=== PATIENT | male | born 1990 | race African-American/Black ===

== ENCOUNTER 2019-03-13 23:20 | Inpatient (IN) | payer MEDICAID, OTHER ==
[~2019-03-13] VITALS: Ht 170.2 cm; Wt 60.8 kg
[2019-03-14] MEDS ORDERED: SODIUM CHLORIDE 0.9% 1,000 ML IV ONE (00:05)
[2019-03-14] MEDS ORDERED: LORAZEPAM 2MG/ML CPJ IV STA (00:05)
[2019-03-14] MEDS ORDERED: ONDANSETRON HCL 4MG/2ML INJ IV STA (00:05)
[2019-03-14 00:36] LABS: BASOPHILS % 0.5 % (0.0-2.0); EOSINOPHILS % 0.4 % (0.0-5.0); HEMATOCRIT. 47.4 % (42.0-52.0); HEMOGLOBIN. 16.5 g/dL (14.0-18.0); LYMPHOCYTES % 28.2 % (20.0-50.0); MEAN PLATELET VOLUME 7.6 fl (7.4-10.4); MONOCYTES % 10.4 % (2.0-8.0); NEUTROPHILS % 60.5 % (40.0-76.0); PLATELET 197 x1000/uL (130-400); RED BLOOD CELL COUNT 4.99 mill/uL (4.7-6.1); RED CELL DISTRIBUTION WIDTH 13.7 % (11.6-14.6)
[2019-03-14 00:37] LABS: BG BASE EXCESS -0.1 mmol/L (-2.0-2.0); BG CARBOXYHEMOGLOBIN 6.9 % (0.5-1.5); BG DEOXYHEMOGLOBIN 1.3 % (0.0-5.0); BG FRACTION INSPIRED OXYGEN 21; BG HCO3 ACT 23.6 mmol/L (22.0-26.0); BG METHEMOGLOBIN 0.1 % (0.0-1.5); BG OXYGEN SATURATION 98.6 % (92.0-98.5); BG OXYHEMOGLOBIN 91.7 % (94.0-97.0); BG PH 7.435 (7.350-7.450); BG PO2 125.3 mmHg (75.0-100.0); BG SAMPLE SITE RIGHT RADIAL; BG TOTAL HEMOGLOBIN 15.4 g/dL (12.0-18.0); BG VENT MODE ROOM AIR
[2019-03-14 00:39] LABS: CHLORIDE 102 mEq/L (98-107)
[2019-03-14 00:43] LABS: ETHANOL BLOOD < 10 mg/dL
[2019-03-14 00:47] LABS: CREATINE KINASE 324 IU/L (39-308)
[2019-03-14 00:49] LABS: CLARITY URINE CLEAR (CLEAR); COLOR URINE YELLOW (YELLOW); KETONES URINE TRACE (NEGATIVE); LEUKOCYTE ESTERASE URINE NEGATIVE (NEGATIVE); NITRITE URINE NEGATIVE (NEGATIVE); OCCULT BLOOD URINE NEGATIVE (NEGATIVE); PROTEIN URINE NEGATIVE (NEGATIVE); SPECIFIC GRAVITY URINE 1.022 (1.005-1.030)
[2019-03-14 00:49] LABS: CARBAMAZEPINE 1.4 ug/mL (4-12)
[2019-03-14 00:59] LABS: *AMPHETAMINES SCREEN URINE PRESUMTIVE POSITIVE (NEGATIVE); *BARBITURATES SCREEN URINE NEGATIVE (NEGATIVE); *BENZODIAZEPINES SCREEN URINE NEGATIVE (NEGATIVE); *COCAINE SCREEN URINE NEGATIVE (NEGATIVE); METHADONE URINE SCREEN NEGATIVE (NEGATIVE); OPIATES URINE SCREEN NEGATIVE (NEGATIVE)
[2019-03-14 01:00] LABS: CANNABINOID URINE SCREEN PRESUMTIVE POSITIVE (NEGATIVE); PHENCYCLIDINE URINE SCREEN NEGATIVE (NEGATIVE)
[2019-03-14 01:04] LABS: VALPROIC ACID 3.8 ug/mL (50-100)
[2019-03-14] MEDS ORDERED: ONDANSETRON HCL 4MG/2ML INJ IV PRN (10:30)
[2019-03-14] MEDS ORDERED: LORAZEPAM 2MG/ML CPJ IV PRN (10:30)
[2019-03-14] MEDS ORDERED: ACETAMINOPHEN 325MG TABLET PO PRN (10:30)
[2019-03-14 10:32] LABS: CARBAMAZEPINE 3.9 ug/mL (4-12)
[2019-03-14 11:42] VITALS: BP 99/50
[2019-03-14 12:00] VITALS: BP 102/61
== END 2019-03-14 15:18 | disposition left against medical advice (07) | DRG 812 ==
LOC: ER 23:20 → 7WST 03-14 05:11 → EDBEDREQ 03-14 05:16 → EDBEDREQTM 03-14 05:16 → ENRESERV 03-14 08:00
PROVIDERS: ADMIT Internal Medicine; ATTEND Internal Medicine
DX: T42.1X2A Poisoning by iminostilbenes, intentional self-harm, initial encounter (principal); G93.40 Encephalopathy, unspecified; M62.82 Rhabdomyolysis; F31.9 Bipolar disorder, unspecified; F12.10 Cannabis abuse, uncomplicated; F41.9 Anxiety disorder, unspecified; F15.10 Other stimulant abuse, uncomplicated; F19.10 Other psychoactive substance abuse, uncomplicated; F17.210 Nicotine dependence, cigarettes, uncomplicated; Y92.89 Other specified places as the place of occurrence of the external cause; Z53.21 Procedure and treatment not carried out due to patient leaving prior to being seen by health care provider
CPT/HCPCS: 36415; 36600; 71045; 80156; 80165; 80305; 80307; 80320; 80329; 82375; 82550; 82805; 83605; 93005; 96374; 96375; 99285; J2060; J2405; J7030; G0480